=== PATIENT | female | born 1940 | race Caucasian/White ===

== ENCOUNTER → 2017-03-17 | Outpatient (CLI) | payer OTHER ==
[~2017-03-17] MED LIST: ACETAMINOPHEN-1 EAC1 PO; ACETAMINOPHEN325 M1 PO; ACETAMINOPHEN650 M5 PO; ADULT LOW DOSE81 MG PO; ALDACTONE25 MG PO; ASPIRIN81 M2 PO; BACTROBAN NASAL1 GM NS; BAYER CHEWABLE81 MG PO; BENADRYL25 MG PO; BYDUREON2 MG; BYDUREON2 MG INJECTION; BYETTA PEN 11 PENIN1 SUBQ; BYETTA PEN 11 PENINJ SUBQ; CARVEDILOL3.125 MG PO; CHLORHEXADINE120 ML TP; CLEOCIN HCL300 MG PO; COMBIVENT INH; COMBIVENT RESPIM4 GM INH; COMPOUND PAIN CREAM; COUMADIN 10MG T10 M1 PO; COUMADIN 5 MG TA5 M1 PO; COZAAR 50 MG TA50 M1 PO; COZAAR 50 MG TA50 M2 PO; DARVOCET-N 1001 EACH PO; DEMADEX20 MG PO; DOXYCYCLINE 10100 M1 PO; DOXYCYCLINE 10100 MG PO; DYAZIDE 37.5-21 EACH PO; FERREX-150 PLU150 MG PO; FISH OIL 1,0001 EAC5 PO; FISH OIL 1,2001 EAC4 PO; FLAGYL500 MG PO; FUROSEMIDE 80 M80 M1 PO; GAS-X125 MG PO; GLUCOPHAGE500 MG PO; GLUMETZA500 PO; IMDUR 30 MG TAB30 M1 PO; IMDUR 60 MG TAB60 M1 PO; JANUMET 50-5001 EACH PO; K-DUR 20 MEQ T20 MEQ PO; KLOR-CON 1010 MEQ PO; LASIX 40 MG TAB40 M1 PO; LASIX 80 MG TAB80 M1 PO; LEVAQUIN 500 M500 M2 PO; LISINOPRIL20 MG PO; LOPRESSOR 12.12.5 MG PO; LORTAB 5 MG/5001 TA1 PO; LOSARTAN POTASS50 MG PO; METFORMIN 500500 MG PO; METOPROLOL SUCC50 MG PO; MULTAQ400 MG PO; MULTIPLE VITAM1 EAC3 PO; NEXIUM40 MG PO; NITROGLYCERIN0.4 MG SL; PACERONE 200 M200 M1 PO; PERCOCET 5-3251 EACH PO; PLAVIX 75 MG TA75 M1 PO; POTASSIUM20 PO; PRADAXA150 MG PO; PRAVACHOL40 MG PO; PREDNISONE 20 M20 M1 PO; PREDNISONE 20 M20 MG PO; PREMPRO 0.625-1 EACH PO; PRILOSEC 20 MG20 MG PO; PROPAFENONE 22225 M1 PO; PROTONIX40 M1 PO; PROTONIX40 M2 PO; PROVENTIL HFA6.7 G1 INH; PROVERA2.5 MG PO; REGLAN 5 MG TAB5 M1 GT; REQUIP 1 MG TABL1 M1 PO; TOPROL XL25 MG PO; TOPROL XL50 MG PO; TUMS PO; TYLENOL W/CODEI1 TA2 PO; TYLENOL325 MG PO; ULTRAM 50MG TAB50 MG PO; VENOFER100 MG/51 IV; VITAMIN D31000 UNI2 PO
== END ==
LOC: ULTRA 08:14
DX: K80.20 Calculus of gallbladder without cholecystitis without obstruction (principal); R11.2 Nausea with vomiting, unspecified; R10.11 Right upper quadrant pain

== ENCOUNTER → 2017-05-05 | Outpatient (CLI) | payer OTHER | LOC: ULTRA 10:12 | DX: K81.9 Cholecystitis, unspecified (principal) ==

== ENCOUNTER 2017-05-13 10:13 | Inpatient (IN) | payer OTHER ==
[~2017-05-13] VITALS: Ht 165.1 cm; Wt 84.4 kg
--- NOTE | ~2017-05-13 | O ---
[address] [address] OPERATIVE REPORT Name: CHINO MEDEL Room #: 305-P ADM IN M.R.#: [id number] Admission: 08/05/17 Attend Phys: Aman Suarez MD, F Discharge: Date of : 44 Report #: [id number] THIS REPORT FOR: //name// CC: Ivan Suarez DATE OF SERVICE: 08/05/2017 SURGEON: Aman Suarez MD COMPUTER SYSTEMS AUDITOR: Juju Martinez NP PREOPERATIVE DIAGNOSES: 1. Symptomatic cholelithiasis, possible acute cholecystitis (status post percutaneous cholecystostomy placement). 2. Hypokalemia. 3. Renal failure. 4. Peripheral vascular disease. 5. Atrial fibrillation. 6. Hypertension. 7. Status post aortic valve replacement. POSTOPERATIVE DIAGNOSES: 1. Acute cholecystitis (status post percutaneous cholecystostomy). 2. Incarcerated umbilical hernia. 3. Renal failure. 4. Peripheral vascular disease. 5. Atrial fibrillation. 6. Hypertension. 7. Status post aortic valve replacement. PROCEDURES: 1. Robotic-assisted laparoscopic cholecystectomy with intraoperative cholangiogram. 2. Laparoscopic primary repair of incarcerated umbilical hernia (separate procedure). ANESTHESIA: General endotracheal anesthesia and local anesthetic. ESTIMATED BLOOD LOSS: 10 mL. SPECIMEN: Gallbladder. COMPLICATIONS: None appreciated. [address] [address] OPERATIVE REPORT Name: CHINO MEDEL Room #: 305-P [facility]M [facility] [id number] Admission: 08/05/17 Attend Phys: Aman Suarez MD, F Discharge: Date of : 42 Report #: [id number] INDICATIONS FOR PROCEDURE: This is a 77-year-old female patient who developed acute cholecystitis. She is status post cholecystostomy placement. The patient had been admitted to with chest pain and her workup revealed this to be noncardiac in nature. The patient had developed worsening acute cholecystitis and underwent cholecystostomy placement by Interventional Radiology. She was initially evaluated in late March with complaints of postprandial nausea, vomiting, abdominal pain, diarrhea and belching 3 months prior. She also had slight jaundice and a low-grade fever of nearly 100 degrees Fahrenheit. Abdominal ultrasound showed cholelithiasis with gallbladder wall thickening, a 6.5 mm, possibly secondary to incomplete distention of the gallbladder or acute on chronic cholecystitis with a negative sonographic Andino's sign. The patient was sent for cardiac clearance and during that time, she developed worsening, prompting her cholecystostomy placement. She has been cleared by Cardiology with a Lovenox bridge. The patient presents today for laparoscopic cholecystectomy with cholangiogram. OPERATIVE FINDINGS: The cholangiogram showed filling of the gallbladder as well as the biliary tree with contrast. No filling defects were seen. Contrast flowed into the duodenal sweep. Robotically, adhesions were present in the right upper quadrant of the abdomen. There were adhesions from the liver to the anterior abdominal wall as well as from omentum to the liver and to the gallbladder. The gallbladder itself was thickened and upon dissection, acute cholecystitis changes were present. The critical view consisting of cystic artery, cystic duct and lower edge of the gallbladder forming a window through which the liver was visible was seen prior to clipping off the cystic artery and cystic duct. Two clips remained on the cystic duct stump and one clip on the cystic artery stump after each was divided. During removal of the gallbladder from the patient's abdominal cavity, an incarcerated umbilical hernia defect was identified. After reducing the herniated content, this required a separate daynae-sw-ubjzk 0 PDS suture for closure. The gallbladder was opened on the backtable. Multiple moderate sized nonpigmented stones were found within the gallbladder with at least one stone lodged in the infundibulum of the gallbladder. Both acute and chronic inflammatory changes were present. The liver bed was oozing and this required placement of FloSeal as a hemostatic agent, especially since the patient is on chronic anticoagulation for her atrial fibrillation and valve replacement. No other significant intraabdominal pathology was identified and there was no evidence for iatrogenic injury. DESCRIPTION OF PROCEDURE IN DETAIL: After the risks, benefits, and expectations of the operation were discussed in detail with the patient, informed consent was obtained. The patient was identified in the preoperative holding area. She was given IV antibiotics as documented in the chart in line with SCIP metrics. The patient was then taken to the operating room and she was placed in the supine position. She was given IV sedation and she was [address] [address] OPERATIVE REPORT Name: MEDELCHINO COLLEEN Room #: 305-P [facility] IN .R.#: [id number] Admission: 08/05/17 Attend Phys: Aman Suarez MD, F Discharge: Date of : 42 Report #: [id number] intubated without incident. It should be noted that the patient was hypokalemic in the preoperative holding area and required potassium to bring her potassium level from 2.9-3.4. The patient was given IV sedation and she was intubated without incident. SCDs had been placed on the patient's bilateral lower extremities and pneumatic compression was initiated. Prior to prepping and draping the patient, a cholangiogram was performed through the indwelling cholecystostomy tube. 60 mL of contrast was injected under fluoroscopy with findings as noted above. The catheter was then removed from the patient's body. The patient was rotated 180 degrees with her head away from anesthesia to accommodate for the robot. The patient's abdomen was prepped and draped in the standard sterile fashion. A time-out had been performed prior to the cholangiogram. Local anesthetic was infiltrated into the skin and subcutaneous tissue in the left mid abdomen where a small transverse incision was made. A 5 mm Visiport was placed intraperitoneally and pneumoperitoneum was achieved with insufflation of carbon dioxide to 15 mmHg. A 30-degree angled laparoscope was then inserted. A left lower quadrant 8 mm ports x 2 were placed under direct visualization after local anesthetic was infiltrated into the skin and subcutaneous tissue and appropriately sized incisions were made. An additional 12 mm port was placed under direct visualization in the infraumbilical area using a similar technique. The 5 mm port was then upsized to an 8 mm port under direct visualization. The robot was then docked to the da Rodolfo ports. After doing so, the instruments were inserted into the abdominal cavity and the tips of the instruments were in view near the gallbladder. The patient had been positioned in the reverse Trendelenburg position, rotated to her left. I then broke scrub to perform the dissection on the robotic console. The dome of the gallbladder was retracted in a cephalad direction. The gallbladder peritoneum was then scored medially and laterally and dissection was carried out around the cystic artery and cystic duct to identify both structures as the only 2 structures entering the gallbladder. The critical view was seen. Hemoclips were placed on the cystic duct x 3 and on the cystic artery x 2. The duct and artery were divided sharply, leaving clips on each stump as described above. The gallbladder was then dissected out the liver bed without entrance of the gallbladder or liver bed using electrocautery. The gallbladder was then fully detached from the liver bed and placed in the right upper quadrant of the abdomen for later removal. The liver bed was made hemostatic with electrocautery. I then rescrubbed to retrieve the gallbladder. A 5 mm 30-degree angled laparoscope was inserted and the gallbladder was placed in the EndoCatch bag and brought out through the 12 mm port site. While doing so, a hernia was seen at [address] [address] OPERATIVE REPORT Name: CHINO MEDEL Room #: 305-P [facility] IN .R.#: [id number] Admission: 08/05/17 Attend Phys: Aman Suarez MD, F Discharge: Date of : 42 Report #: [id number] the umbilicus. The incarcerated tissue was dissected out of the defect. The defect was then closed with a ewxpzg-ku-kgecy 0 PDS suture under direct visualization with the Jason-Melony laparoscopic fascial closure device. An additional simple interrupted suture was placed with Jason-Melony laparoscopic fascial closure device for approximation of the port site fascia. The port was then replaced and the abdominal cavity was reentered. The liver bed was made hemostatic with both electrocautery and with the addition of FloSeal. After applying FloSeal, there was good hemostasis. No other significant intraabdominal pathology was identified. The fascial suture was tied under direct visualization to ensure no incorporation of intra-abdominal content with the closure. The abdominal cavity was then desufflated and the ports were removed. Interrupted subcuticular 4-0 Monocryl sutures and Dermabond were used to close the skin incisions. The patient tolerated the procedure well. She was awakened, extubated, and taken to recovery room in stable condition with no apparent intraoperative complications. <ELECTRONICALLY SIGNED> By: Aman Suarez MD, FACS 08/05/17 1957 1452 1604 Aman Suarez MD, FACS /nt
--- NOTE | ~2017-05-13 | S ---
[facility] [address] SURGICAL PATH RPT PROCEDURE Name: DANYELLE MEDEL Room #: 305-P ADM IN M.R.#: [id number] Admission: 08/05/17 Date of : 44 Discharge: Report #: [id number] Path Case #: [id number] PATHOLOGY REPORT COLLECTION DATE: 08/05/2017 RECEIVED DATE: 08/05/2017 SUBMITTING PHYS: Dr. Aman Suarez OTHER PHYS: Dr. Sacha Mae SPECIMEN(S) RECEIVED: A.Gallbladder * * * * * * * * * * * * FINAL DIAGNOSIS: "Gallbladder", cholecystectomy: - Marked acute cholecystitis. - Cholelithiasis. (CLW:jerica; 08/07/2017) PATHOLOGIST: Christina Cruz M.D. REPORT ELECTRONICALLY SIGNED BY: Christina Cruz M.D. DATE/TIME: 08/07/2017 14:24 * * * * * * * * * * * * GROSS PATHOLOGY: Received in formalin labeled "Danyelle Medel gallbladder," is a 7.3 x 5.6 x 2.7 cm, previously opened gallbladder with light perales, slightly wrinkled serosal surfaces. Opening the gallbladder reveals light perales to dark brown, grainy mucosa and an average wall thickness of 0.3 cm. Calculi are present, measuring 0.6-1.9 cm in maximum dimension, possessing a dark perales color, and feeling firm to the touch. No masses are noted grossly. Fusion Operator sections from the body and fundus are submitted along with the proximal margin in cassette A1. (TSD; 08/06/2017) CLINICAL HISTORY: Acute cholecystitis INITIAL CPT CODE(S): A; 66942 Professional [facility] by [facility] [address] , [place] [address] [facility] [address] [place] [address] SURGICAL PATH RPT PROCEDURE Name: DANYELLE MEDEL Room #: 305-P [facility] IN ..#: [id number] Admission: 08/05/17 Date of : 42 Discharge: Report #: [id number] Path Case #: [id number] Technical [facility] by [facility] at [address] [place] [address], [facility] [address] [address]. [facility] [address] [place] [address] PHONE: [phone] DIRECTOR: Bao Zamora M.D. * * * END OF REPORT * * *
[2017-06-02] MEDS ORDERED: POTASSIUM20 PO (10:06)
[2017-06-02] MEDS ORDERED: TOPROL XL25 MG PO (16:42)
[2017-06-02] MEDS ORDERED: NITROSTAT0.4 M1 SL (16:47)
[2017-06-02] MEDS ORDERED: CALCITRIOL0.25 MCG PO (16:49)
[2017-06-08] MEDS ORDERED: CIPRO500 MG PO (10:51)
[2017-06-08] MEDS ORDERED: COZAAR 50 MG TA50 M1 PO (11:02)
[2017-07-10] MEDS ORDERED: COZAAR 25 MG TA25 M1 PO (11:58)
[2017-07-10] MEDS ORDERED: VITAMIN D400 UNI2 PO (11:59)
[2017-08-01] MEDS ORDERED: ENOXAPARIN40 MG/0.1 SUBQ (08:43)
[2017-08-01] MEDS ORDERED: JANUVIA25 MG PO (08:47)
[2017-08-01] MEDS ORDERED: COMBIVENT INH (09:17)
[2017-08-01] MEDS ORDERED: COUMADIN7.5 MG PO (09:20)
[2017-08-05 07:08] LABS: HEMATOCRIT 28.5 % (37.0-47.0); HEMOGLOBIN 9.9 gm/dL (12.0-15.0); MCH 29.8 pg (26.0-34.0); MCHC 34.9 g/dL (28.0-37.0); MCV 85.3 fL (80.0-100.0); RBC 3.34 mil/uL (4.20-5.00); RDW 15.2 % (10.5-14.5); WBC 4.7 thou/uL (4.0-11.0)
[2017-08-05 07:18] LABS: CALCIUM 8.7 mg/dL (8.5-10.1); CREATININE 4.4 mg/dL (0.6-1.0)
[2017-08-05 07:24] LABS: ALBUMIN 3.5 g/dL (3.4-5.0); TOTAL BILIRUBIN 0.8 mg/dL (<0.1-1.0)
[2017-08-05 07:25] LABS: INR 1.5; POTASSIUM 2.9 mmol/L (3.5-5.1); PROTIME 15.6 Seconds (9.3-11.4)
[2017-08-05 16:30] VITALS: BP 142/55
[2017-08-05 17:00] VITALS: BP 124/53
[2017-08-05 20:00] VITALS: BP 143/57
[2017-08-06] VITALS: BP 112/45
[2017-08-06 04:00] VITALS: BP 89/45
[2017-08-06 06:33] LABS: HEMATOCRIT 24.9 % (37.0-47.0); HEMOGLOBIN 8.5 gm/dL (12.0-15.0); MCH 29.6 pg (26.0-34.0); MCHC 34.3 g/dL (28.0-37.0); MCV 86.5 fL (80.0-100.0); PLATELET COUNT 141 thou/uL (150-400); RBC 2.88 mil/uL (4.20-5.00); RDW 15.2 % (10.5-14.5)
[2017-08-06 06:35] LABS: MANUAL DIFF YES
[2017-08-06 06:48] LABS: POTASSIUM 3.5 mmol/L (3.5-5.1)
[2017-08-06 06:49] LABS: CREATININE 2.7 mg/dL (0.6-1.0)
[2017-08-06 07:35] VITALS: BP 96/43
[2017-08-06 08:52] LABS: ABSOLUTE NEUTROPHILS 4.3 thou/uL (1.4-8.2); ANISOCYTOSIS 1+; TOTAL CELL COUNT 100
[2017-08-06 11:55] VITALS: BP 119/53
[2017-08-06 19:07] VITALS: BP 120/62
[2017-08-07 04:51] VITALS: BP 112/56
[2017-08-07 05:53] LABS: HEMATOCRIT 24.2 % (37.0-47.0); HEMOGLOBIN 8.4 gm/dL (12.0-15.0); MCH 30.2 pg (26.0-34.0); MCHC 34.8 g/dL (28.0-37.0); MCV 86.6 fL (80.0-100.0); PLATELET COUNT 121 thou/uL (150-400); RBC 2.79 mil/uL (4.20-5.00); RDW 15.2 % (10.5-14.5); WBC 4.6 thou/uL (4.0-11.0)
[2017-08-07 05:55] LABS: MANUAL DIFF YES
[2017-08-07 06:03] LABS: CALCIUM 8.4 mg/dL (8.5-10.1); CREATININE 1.9 mg/dL (0.6-1.0); INR 1.8; MAGNESIUM 1.8 mg/dL (1.8-2.4); POTASSIUM 3.5 mmol/L (3.5-5.1); PROTIME 18.5 Seconds (9.3-11.4)
[2017-08-07 07:09] VITALS: BP 122/51
[2017-08-07 08:47] LABS: ABSOLUTE NEUTROPHILS 3.5 thou/uL (1.4-8.2); ANISOCYTOSIS 1+; ATYPICAL LYMPHS 1 %; TOTAL CELL COUNT 100
[2017-08-07] MEDS ORDERED: DEMADEX20 MG PO (10:09)
[2017-08-07] MEDS ORDERED: PEPCID20 MG PO (10:09)
[2017-08-07] MEDS ORDERED: COLACE 100 MG100 MG PO (10:09)
[2017-08-07 15:19] VITALS: BP 122/51
== END 2017-08-07 17:32 | disposition home or self-care (01) | DRG 417 ==
LOC: OR → EDSTATUS 06-11 08:14 → OR 06-11 10:34 → TBA 08-05 05:53 → 3N 08-05 05:53 → PRE 08-05 08:17 → 3N 08-05 16:55 → ENTRNSPT 08-07 16:07 → 3N 08-07 17:32
PROVIDERS: Anesthesiology; Nurse Practitioner; Surgery
PROC: 0FT44ZZ Resection of Gallbladder, Percutaneous Endoscopic Approach (ICD-10-PCS; principal; 2017-08-05)
PROC: 0WQF4ZZ Repair Abdominal Wall, Percutaneous Endoscopic Approach (ICD-10-PCS; 2017-08-05)
PROC: 8E0W4CZ Robotic Assisted Procedure of Trunk Region, Percutaneous Endoscopic Approach (ICD-10-PCS; 2017-08-05)
PROC: BF131ZZ Fluoroscopy of Gallbladder and Bile Ducts using Low Osmolar Contrast (ICD-10-PCS; 2017-08-05)
DX: K81.0 Acute cholecystitis (principal); N17.0 Acute kidney failure with tubular necrosis; K42.0 Umbilical hernia with obstruction, without gangrene; I25.10 Atherosclerotic heart disease of native coronary artery without angina pectoris; G47.33 Obstructive sleep apnea (adult) (pediatric); I48.91 Unspecified atrial fibrillation; E78.00 Pure hypercholesterolemia, unspecified; M10.9 Gout, unspecified; G43.909 Migraine, unspecified, not intractable, without status migrainosus; J45.909 Unspecified asthma, uncomplicated; E11.22 Type 2 diabetes mellitus with diabetic chronic kidney disease; I12.9 Hypertensive chronic kidney disease with stage 1 through stage 4 chronic kidney disease, or unspecified chronic kidney disease; N18.9 Chronic kidney disease, unspecified; Z96.641 Presence of right artificial hip joint; E11.51 Type 2 diabetes mellitus with diabetic peripheral angiopathy without gangrene; E87.6 Hypokalemia; Z96.653 Presence of artificial knee joint, bilateral; Z90.710 Acquired absence of both cervix and uterus; Z88.0 Allergy status to penicillin; Z88.2 Allergy status to sulfonamides; Z88.8 Allergy status to other drugs, medicaments and biological substances; Z86.73 Personal history of transient ischemic attack (TIA), and cerebral infarction without residual deficits; Z95.0 Presence of cardiac pacemaker; Z95.2 Presence of prosthetic heart valve; Z98.42 Cataract extraction status, left eye; Z98.41 Cataract extraction status, right eye; Z95.5 Presence of coronary angioplasty implant and graft; Z85.51 Personal history of malignant neoplasm of bladder; Z87.891 Personal history of nicotine dependence
CPT/HCPCS: 10096; 49000; 50010; 50101; 50249; 50411; 50455; 50555; 50558; 50900; 51751; 51975; 52265; 54022; 54118; 56525; 56526; 56632; 56641; 57006; 62110; 62900; 70005

== ENCOUNTER → 2017-06-16 | Outpatient (CLI) | payer OTHER ==
[~2017-06-16] VITALS: Ht 160 cm; Wt 95.3 kg
[~2017-06-16] MED LIST changes: +CALCITRIOL0.25 MCG PO; +CIPRO500 MG PO; +NITROSTAT0.4 M1 SL
[2017-06-16 13:44] VITALS: BP 132/59
== END ==
LOC: SPEC 12:56
DX: Z43.4 Encounter for attention to other artificial openings of digestive tract (principal); I25.10 Atherosclerotic heart disease of native coronary artery without angina pectoris; I11.0 Hypertensive heart disease with heart failure; I50.9 Heart failure, unspecified; E11.9 Type 2 diabetes mellitus without complications; E78.00 Pure hypercholesterolemia, unspecified; M10.9 Gout, unspecified; K21.9 Gastro-esophageal reflux disease without esophagitis; E78.5 Hyperlipidemia, unspecified; E66.09 Other obesity due to excess calories; G43.909 Migraine, unspecified, not intractable, without status migrainosus; G47.33 Obstructive sleep apnea (adult) (pediatric); I48.91 Unspecified atrial fibrillation; D64.9 Anemia, unspecified; Z87.891 Personal history of nicotine dependence; Z98.41 Cataract extraction status, right eye; Z98.42 Cataract extraction status, left eye; Z96.1 Presence of intraocular lens; Z96.641 Presence of right artificial hip joint; Z96.653 Presence of artificial knee joint, bilateral; Z95.2 Presence of prosthetic heart valve; Z95.1 Presence of aortocoronary bypass graft; Z86.73 Personal history of transient ischemic attack (TIA), and cerebral infarction without residual deficits; Z98.890 Other specified postprocedural states; Z79.899 Other long term (current) drug therapy; Z88.0 Allergy status to penicillin; Z88.2 Allergy status to sulfonamides; Z88.8 Allergy status to other drugs, medicaments and biological substances

== ENCOUNTER → 2017-06-23 | Outpatient (CLI) | payer OTHER ==
[2017-06-23 13:15] LABS: CREATININE 2.5 mg/dL (0.6-1.0)
== END | disposition home or self-care (01) ==
LOC: CAT 12:37
PROVIDERS: Surgery
DX: T85.9XXA Unspecified complication of internal prosthetic device, implant and graft, initial encounter (principal)

== ENCOUNTER → 2017-07-30 | Outpatient (CLI) | payer OTHER ==
[~2017-07-30] MED LIST changes: +COUMADIN7.5 MG PO; +COZAAR 25 MG TA25 M1 PO; +ENOXAPARIN40 MG/0.1 SUBQ; +JANUVIA25 MG PO; +VITAMIN D400 UNI2 PO
--- NOTE | ~2017-07-30 | EKG ---
[address] [place] [address] ELECTROCARDIOGRAM REPORT Name: CHINO MEDEL [id number] Admission: 07/30/17 Attend Phys: Aman Suarez MD, F Discharge: Date of : 42 Report #: [id number] THIS REPORT FOR: //name// [facility] Test Date: 2017-07-30 Test Time: 16:07:49 Pat Name: CHINO MEDEL Department: Room: Gender: F Panel Raiser Operator: CAROLANN : 1940 Requested By: Aman Suarez Order Number: [id number] MD: Felix Huntley Measurements Intervals [place] Rate: 74 P: 45 MD: 124 QRS: 52 QRSD: 120 T: 59 QT: 416 QTc: 462 Interpretive Statements Sinus rhythm Nonspecific intraventricular conduction delay Borderline T abnormalities, anterior leads Compared to ECG 07/10/2017 11:34:51 No significant change was found Electronically Signed On 08-01-2017 8:24:37 CDT by Felix Huntley [email or web address] <ELECTRONICALLY SIGNED> By: Felix Huntley MD, [facility] 08/01/17 0824 06 06 Felix Huntley MD, [facility] /EPI
== END ==
LOC: RAD 15:12
DX: Z01.818 Encounter for other preprocedural examination (principal); K81.9 Cholecystitis, unspecified

== ENCOUNTER 2017-08-08 23:24 | Inpatient (IN) | payer OTHER ==
[~2017-08-08] VITALS: Ht 165.1 cm; Wt 97.1 kg
--- NOTE | ~2017-08-08 | HC ---
[facility] [place] [address] CONSULTATION Name: CHINO MEDEL Room #: 215-P ADM IN M.R.#: [id number] Admission: 08/09/17 Attend Phys: Sacha Smith DO Discharge: Date of : 42 Report #: [id number] THIS REPORT FOR: //name// CC: Sacha Hung DATE OF SERVICE: 08/09/2017 REQUESTING PHYSICIAN: Dr. Lan Truong. PRIMARY YARD ENGINEER: Dr. Ivan Wilson. REASON FOR CONSULTATION: Congestive heart failure, shortness of breath. HISTORY OF PRESENT ILLNESS: The patient is a 77-year-old woman who underwent a recent abdominal surgery at this institution. Since her discharge, she had been doing fairly well but then she began to have swelling and acute shortness of breath and presented to the Emergency Department. Her ECG did not show any acute ST segment changes. She was given diuretics in the Emergency Room and her shortness of breath has improved. Initially, she did present hypertensive with systolic pressures in the 170s but at this point in time, her blood pressure is normalized in the 140s. Clinically, she denies chest pain or palpitations. She denies orthopnea or PND, but had been dyspneic with exertion. PAST MEDICAL HISTORY: 1. She has an extensive cardiovascular history with a history of single-vessel bypass surgery, history of aortic valve replacement in 2009, history of ____ LV systolic function, history of ____, permanent pacemaker in 2011, Biotronik. 2. Remote TIA. 3. Atrial fibrillation. 4. Migraines. 5. Gout. 6. MRSA. 7. Chronic kidney disease. HOME MEDICATIONS: Include the following: Torsemide 20 mg daily, famotidine, docusate, warfarin 5 mg daily, baby aspirin, Aldactone 25 mg daily, Toprol-XL 25 mg daily, potassium chloride 20 mEq daily, losartan 25 mg daily, albuterol and Atrovent and pravastatin 40 mg daily. SOCIAL HISTORY: There is no tobacco or ethanol history. FAMILY HISTORY: Noncontributory. [facility] [address] [place] [address] CONSULTATION Name: CHINO MEDEL Room #: 215-P [facility] IN M.R.#: [id number] Admission: 08/09/17 Attend Phys: Sacha Smith DO Discharge: Date of : 42 Report #: [id number] REVIEW OF SYSTEMS: GENERAL: No fevers or chills. GASTROINTESTINAL: No abdominal pain, nausea or vomiting. GENITOURINARY: No dysuria or hematuria. MUSCULOSKELETAL: Denies any falls. CARDIOVASCULAR: Positive dyspnea with exertion. No chest pain, no orthopnea, no PND. HEMATOLOGIC: No anemia or bleeding disorders. RENAL: No history of kidney failure. PHYSICAL EXAMINATION: VITAL SIGNS: Blood pressure is 127/56, pulse is 79 in sinus rhythm and temperature is 37.1. GENERAL: This is a pleasant elderly female. She is alert, oriented, no apparent distress. NECK: Supple. No jugular venous distention. CARDIOVASCULAR: Regular. I could not hear a murmur or rub. LUNGS: Clear to auscultation. ABDOMEN: Nontender. She is mildly distended. There is no rebound or guarding. EXTREMITIES: There is a 1 to 2+ edema. NEUROLOGIC: No focal deficits. LABORATORY DATA: Her hemoglobin is 9.2, white blood count is 4.7, platelet counts 203,000. INR is 2.0. Sodium is 138, potassium is 3.6, chloride is 104, CO2 is 26, BUN is 12, creatinine is 1.4. Chest x-ray on 08/08 demonstrates no acute process. IMPRESSION: 1. Acute diastolic congestive heart failure. I suspect this is related to volume and colloid received during her surgery. I would continue with diuretics and she can resume her torsemide at home at her current dose. 2. Coronary artery disease, status post bypass surgery and percutaneous coronary intervention. She has ruled out for an acute myocardial infarction. I was reviewing her records and she had a cardiac catheterization in 2013, which showed a patent stent in the first obtuse marginal vessel and a patent vein graft to the posterior descending artery and minimal disease elsewhere. 3. Status post aortic valve replacement. Would continue with warfarin. 4. Hypertension. This is stable on current therapy. 5. Status post robot assisted cholecystectomy. She seems to have recovered from this. <ELECTRONICALLY SIGNED> By: Jun Ashraf MD, FACC 08/11/17 0941 1409 2317 Jun Ashraf MD, FACC /nt
--- NOTE | ~2017-08-08 | EKG ---
[address] [address] ELECTROCARDIOGRAM REPORT Name: CHINO MEDEL Room #: 215-P ADM IN M.R.#: [id number] Admission: 08/09/17 Attend Phys: Lan Hung Discharge: Date of : 44 Report #: [id number] THIS REPORT FOR: //name// [facility] ED Test Date: 2017-08-08 Test Time: 23:32:52 Pat Name: CHINO MEDEL Department: Room: [facility] Gender: F Machine Sign Writer: SKYLER : 1940 Requested By: Kdai Bright Order Number: [id number] MD: Yosvany Park Measurements Intervals [place] Rate: 73 P: 69 ND: 162 QRS: 30 QRSD: 117 T: 44 QT: 407 QTc: 449 Interpretive Statements Sinus rhythm Nonspecific intraventricular conduction delay Compared to ECG 07/30/2017 16:07:49 T-wave abnormality no longer present Electronically Signed On 08-09-2017 12:44:26 CDT by Yosvany Park [email or web address] <ELECTRONICALLY SIGNED> By: Yosvany Park MD 08/09/17 1244 2332 2332 MD BRUNO Colón
[~2017-08-08 23:24] MED LIST changes: +COLACE 100 MG100 MG PO; +PEPCID20 MG PO
[2017-08-08 23:30] VITALS: BP 176/52
[2017-08-09] VITALS (8 sets, daily range): BP systolic 121–184; BP diastolic 52–103
[2017-08-09 00:05] LABS: HEMATOCRIT 26.5 % (37.0-47.0); HEMOGLOBIN 9.2 gm/dL (12.0-15.0); MCHC 34.8 g/dL (28.0-37.0); MCV 86.3 fL (80.0-100.0); RBC 3.07 mil/uL (4.20-5.00); RDW 15.5 % (10.5-14.5); WBC 4.7 thou/uL (4.0-11.0)
[2017-08-09 00:06] LABS: PLATELET COUNT 203 thou/uL (150-400)
[2017-08-09 00:07] LABS: MANUAL DIFF YES
[2017-08-09 00:13] LABS: CALCIUM 9.3 mg/dL (8.5-10.1); CREATININE 1.4 mg/dL (0.6-1.0); POTASSIUM 3.6 mmol/L (3.5-5.1)
[2017-08-09 00:58] LABS: ABSOLUTE NEUTROPHILS 3.6 thou/uL (1.4-8.2); ANISOCYTOSIS SLIGHT; HYPOCHROMASIA SLIGHT; LARGE PLATELETS RARE; TOTAL CELL COUNT 100
[2017-08-09 01:55] LABS: APTT 33.5 Seconds (24.5-32.8); PROTIME 19.5 Seconds (9.3-11.4)
[2017-08-10 03:51] LABS: HEMATOCRIT 25.2 % (37.0-47.0); HEMOGLOBIN 8.8 gm/dL (12.0-15.0); MCH 29.7 pg (26.0-34.0); MCHC 34.8 g/dL (28.0-37.0); MCV 85.4 fL (80.0-100.0); PLATELET COUNT 230 thou/uL (150-400); RBC 2.95 mil/uL (4.20-5.00); RDW 15.5 % (10.5-14.5); WBC 4.2 thou/uL (4.0-11.0)
[2017-08-10 04:05] LABS: CALCIUM 8.8 mg/dL (8.5-10.1); CREATININE 1.5 mg/dL (0.6-1.0); POTASSIUM 3.1 mmol/L (3.5-5.1)
[2017-08-10 04:30] VITALS: BP 139/51
[2017-08-10 06:00] LABS: MANUAL DIFF YES
[2017-08-10 08:45] LABS: ABSOLUTE NEUTROPHILS 3.2 thou/uL (1.4-8.2); ANISOCYTOSIS 1+; POLYCHROMASIA OCCASIONAL; TOTAL CELL COUNT 100
[2017-08-10 10:31] VITALS: BP 146/75
[2017-08-10 16:42] VITALS: BP 142/68
[2017-08-10 20:26] VITALS: BP 144/56
[2017-08-11 03:15] LABS: HEMATOCRIT 28.1 % (37.0-47.0); HEMOGLOBIN 9.4 gm/dL (12.0-15.0); MCHC 33.4 g/dL (28.0-37.0); PLATELET COUNT 264 thou/uL (150-400); RBC 3.23 mil/uL (4.20-5.00); RDW 15.2 % (10.5-14.5)
[2017-08-11 03:28] LABS: CALCIUM 8.7 mg/dL (8.5-10.1); CREATININE 1.5 mg/dL (0.6-1.0); INR 1.4; POTASSIUM 3.2 mmol/L (3.5-5.1)
[2017-08-11 03:29] LABS: MANUAL DIFF YES
[2017-08-11 04:08] VITALS: BP 149/57
[2017-08-11 05:39] LABS: ABSOLUTE NEUTROPHILS 3.5 thou/uL (1.4-8.2); LARGE PLATELETS FEW; TOTAL CELL COUNT 100
[2017-08-11 07:37] VITALS: BP 131/54
[2017-08-11 11:37] VITALS: BP 131/54
[2017-08-11 11:45] VITALS: BP 131/54
== END 2017-08-11 14:25 | disposition home health service (06) | DRG 291 ==
LOC: ER 23:24 → EROBS 08-09 01:10 → 2N 08-09 01:10 → ENTRNSPT 08-11 12:04 → EDTRNSPTSTS 08-11 12:12 → 2N 08-11 14:25
PROVIDERS: Emergency Medicine; Family Medicine; Internal Medicine Cardiovascular Disease
DX: I13.0 Hypertensive heart and chronic kidney disease with heart failure and stage 1 through stage 4 chronic kidney disease, or unspecified chronic kidney disease (principal); I50.31 Acute diastolic (congestive) heart failure; I25.10 Atherosclerotic heart disease of native coronary artery without angina pectoris; G47.33 Obstructive sleep apnea (adult) (pediatric); I48.91 Unspecified atrial fibrillation; M10.9 Gout, unspecified; N18.9 Chronic kidney disease, unspecified; G43.909 Migraine, unspecified, not intractable, without status migrainosus; Z96.1 Presence of intraocular lens; J45.909 Unspecified asthma, uncomplicated; E78.00 Pure hypercholesterolemia, unspecified; Z96.641 Presence of right artificial hip joint; Z96.653 Presence of artificial knee joint, bilateral; E11.22 Type 2 diabetes mellitus with diabetic chronic kidney disease; Z86.73 Personal history of transient ischemic attack (TIA), and cerebral infarction without residual deficits; Z95.0 Presence of cardiac pacemaker; Z95.1 Presence of aortocoronary bypass graft; Z95.2 Presence of prosthetic heart valve; Z98.42 Cataract extraction status, left eye; Z98.41 Cataract extraction status, right eye; Z95.5 Presence of coronary angioplasty implant and graft; Z85.51 Personal history of malignant neoplasm of bladder; Z79.899 Other long term (current) drug therapy; Z88.6 Allergy status to analgesic agent; Z88.0 Allergy status to penicillin; Z88.5 Allergy status to narcotic agent; Z88.8 Allergy status to other drugs, medicaments and biological substances; Z88.2 Allergy status to sulfonamides; Z87.891 Personal history of nicotine dependence; Z90.49 Acquired absence of other specified parts of digestive tract; Z90.710 Acquired absence of both cervix and uterus
CPT/HCPCS: 10081

== ENCOUNTER → 2018-05-14 | Outpatient (CLI) | payer OTHER | LOC: ULTRA 06:01 | DX: N18.4 Chronic kidney disease, stage 4 (severe) (principal); N28.1 Cyst of kidney, acquired; R35.0 Frequency of micturition ==

== ENCOUNTER → 2018-05-21 | Outpatient (CLI) | payer OTHER | LOC: ULTRA 15:10 | DX: N28.1 Cyst of kidney, acquired (principal); R63.0 Anorexia; Z90.49 Acquired absence of other specified parts of digestive tract ==

== ENCOUNTER → 2019-01-11 | Outpatient (CLI) | payer OTHER ==
[~2019-01-11] MED LIST changes: +FLECAINIDE ACET50 M1 PO
[2019-01-11 09:45] VITALS: BP 106/61
[2019-01-11 10:55] VITALS: BP 115/55
--- NOTE | 2019-01-11 12:26 | NUR ---
IN FOR 1ST OF 5 VENOFER INFUSIONS. STATED FEELING VERY TIRED AND NEEDS A PICK ME UP. ADMISSION HISTORY AND ASSESSMENT COMPLETED. RECONCILED MEDICATIONS. NO NEW ALLERGIES. IV STARTED IN RAC AND INFUSED VENOFER OVER 30 MIN. TOLERATED WELL WITHOUT INCIDENT. POST VITAL SIGNS GOOD. REMOVED IV AND APPLIED COBAN PATIENT IS ON WARFARIN AND BLEEDS EASILY. TO RETURN FRIDAY FOR 2ND INFUSION. DISMISSED IN STABLE CONDITION.
== END ==
LOC: OPONC 00:26
DX: N18.9 Chronic kidney disease, unspecified (principal); D63.1 Anemia in chronic kidney disease; D50.9 Iron deficiency anemia, unspecified
CPT/HCPCS: 95000

== ENCOUNTER → 2019-01-13 | Outpatient (CLI) | payer OTHER ==
[2019-01-13 10:00] VITALS: BP 128/63
[2019-01-13 11:00] VITALS: BP 138/54
[2019-01-13 11:15] VITALS: BP 147/66
--- NOTE | 2019-01-13 11:21 | NUR ---
HERE FOR 2ND OF 5 IV IRON INFUSIONS FOR IRON DEFICIENCY ANEMIA. REPORTS TOLERATING FRIDAY'S DOSE WELL AND TODAY'S INFUSION COMPLETED WITHOUT INCIDENT, INFUSED OVER 30 MINUTES. VSS POST. SALINE LOCK LEFT IN PLACE LEFT FOREARM PER PT'S REQUEST. SCHEDULED TO RETURN AGAIN ON FRIDAY. DISMISSED IN STABLE CONDITION.
== END ==
LOC: OPONC 00:13
DX: D50.9 Iron deficiency anemia, unspecified (principal); N18.9 Chronic kidney disease, unspecified
CPT/HCPCS: 95000

== ENCOUNTER → 2019-01-15 | Outpatient (CLI) | payer OTHER ==
[2019-01-15 08:10] VITALS: BP 153/69
[2019-01-15 08:50] VITALS: BP 146/63
--- NOTE | 2019-01-15 09:00 | NUR ---
IN FOR 3RD OF 5 DOSES VENOFER FOR IRON DEFICIENCY ANEMIA. REPORTS TOLERATING THEM ALL WELL, NO S/S ADVERSE REACTIONS. SALINE LOCK LEFT IN PLACE FROM FRI FLUSHED EASILY THIS MORNING BUT BECAME TENDER MIDWAY THROUGH TODAY'S INFUSION SO DC'D AND NEW LINE PLACED RAC FOR REMAINDER OF INFUSION. PT TOLERATED WELL. DISMISSED IN STABLE CONDITION, VSS. SCHEDULED TO RETURN AGAIN ON FRIDAY.
== END ==
LOC: OPONC 02:46
DX: D50.9 Iron deficiency anemia, unspecified (principal); N18.9 Chronic kidney disease, unspecified
CPT/HCPCS: 95000

== ENCOUNTER → 2019-01-18 | Outpatient (CLI) | payer OTHER ==
[2019-01-18 07:50] VITALS: BP 129/62
[2019-01-18 09:15] VITALS: BP 143/68
--- NOTE | 2019-01-18 14:01 | NUR ---
IN FOR # 4 OF 5 VENOFER INFUSIONS. STATED SHE THINKS SHE IS FEELING BETTER BECAUSE SHE DOESN'T WANT TO SLEEP ALL THE TIME. DENIED PAIN. TOLERATED INFUSION WELL. POST VITAL SIGNS GOOD. REMOVED IV AND DISMISSED IN STABLE CONDITION.
== END ==
LOC: OPONC 07:52
DX: D50.9 Iron deficiency anemia, unspecified (principal); N18.9 Chronic kidney disease, unspecified
CPT/HCPCS: 95000

== ENCOUNTER → 2019-01-22 | Outpatient (CLI) | payer OTHER ==
[2019-01-22 09:07] VITALS: BP 141/65
[2019-01-22 09:55] VITALS: BP 138/61
--- NOTE | 2019-01-22 10:45 | NUR ---
PT IN FOR HER LAST VENOFER INFUSION. REPORTS GAINING SOME ENERGY AND STRENGTH. STATES SHE HAS TOLERATED ALL WITHOUT INCIDENT, NO S/S ADVERSE EFFECTS INCLUDING TODAY. VSS POST. STAYED FOR A BIT POST INFUSION TO AWAIT A LUNCH DATE. DISMISSED IN STABLE CONDITION.
== END ==
LOC: OPONC 01-20 08:13
DX: I13.0 Hypertensive heart and chronic kidney disease with heart failure and stage 1 through stage 4 chronic kidney disease, or unspecified chronic kidney disease (principal); E11.22 Type 2 diabetes mellitus with diabetic chronic kidney disease; N18.4 Chronic kidney disease, stage 4 (severe); D63.1 Anemia in chronic kidney disease; I25.10 Atherosclerotic heart disease of native coronary artery without angina pectoris; I48.0 Paroxysmal atrial fibrillation; E11.51 Type 2 diabetes mellitus with diabetic peripheral angiopathy without gangrene; Z85.51 Personal history of malignant neoplasm of bladder
CPT/HCPCS: 95000

== ENCOUNTER → 2020-06-19 | Outpatient (CLI) | payer OTHER | LOC: ULTRA 15:08 | PROVIDERS: ATTEND Nurse Practitioner | DX: R22.42 Localized swelling, mass and lump, left lower limb (principal) ==

== ENCOUNTER → 2020-07-11 | Outpatient (CLI) | payer OTHER | LOC: LAB 09:08 | PROVIDERS: ATTEND Family Medicine | DX: Z20.828 Contact with and (suspected) exposure to other viral communicable diseases (principal); R05 Cough ==

== ENCOUNTER → 2020-07-26 | Outpatient (CLI) | payer OTHER | LOC: RAD 07:59 | PROVIDERS: ATTEND Internal Medicine | DX: I50.32 Chronic diastolic (congestive) heart failure (principal) ==

== ENCOUNTER → 2020-10-31 | Outpatient (CLI) | payer OTHER | LOC: SJCVCIMAG 07:53 | PROVIDERS: ATTEND Nuclear Medicine Nuclear Cardiology | DX: I65.23 Occlusion and stenosis of bilateral carotid arteries (principal); E11.51 Type 2 diabetes mellitus with diabetic peripheral angiopathy without gangrene; I77.9 Disorder of arteries and arterioles, unspecified; I25.10 Atherosclerotic heart disease of native coronary artery without angina pectoris; I73.9 Peripheral vascular disease, unspecified; M79.604 Pain in right leg; M79.605 Pain in left leg; I48.0 Paroxysmal atrial fibrillation; E11.22 Type 2 diabetes mellitus with diabetic chronic kidney disease; I12.9 Hypertensive chronic kidney disease with stage 1 through stage 4 chronic kidney disease, or unspecified chronic kidney disease; N18.9 Chronic kidney disease, unspecified; E78.00 Pure hypercholesterolemia, unspecified; Z95.1 Presence of aortocoronary bypass graft; Z95.2 Presence of prosthetic heart valve; Z95.828 Presence of other vascular implants and grafts; Z79.899 Other long term (current) drug therapy; Z87.891 Personal history of nicotine dependence ==

== ENCOUNTER → 2021-06-27 | Outpatient (CLI) | payer OTHER ==
[~2021-06-27] MED LIST changes: -COUMADIN7.5 MG PO; +WARFARIN SODIU7.5 MG PO; +WARFARIN SODIUM5 MG PO
== END ==
LOC: HYPER 08:51
PROVIDERS: ATTEND Emergency Medicine Emergency Medical Services
DX: S31.819A Unspecified open wound of right buttock, initial encounter (principal); L02.31 Cutaneous abscess of buttock; E11.51 Type 2 diabetes mellitus with diabetic peripheral angiopathy without gangrene; E07.89 Other specified disorders of thyroid; E66.9 Obesity, unspecified; E78.00 Pure hypercholesterolemia, unspecified; G47.33 Obstructive sleep apnea (adult) (pediatric); I48.91 Unspecified atrial fibrillation; I25.10 Atherosclerotic heart disease of native coronary artery without angina pectoris; I11.0 Hypertensive heart disease with heart failure; I50.32 Chronic diastolic (congestive) heart failure; J45.909 Unspecified asthma, uncomplicated; Z86.73 Personal history of transient ischemic attack (TIA), and cerebral infarction without residual deficits; Z79.01 Long term (current) use of anticoagulants; Z79.82 Long term (current) use of aspirin; Z68.32 Body mass index [BMI] 32.0-32.9, adult; Z87.891 Personal history of nicotine dependence; Z95.4 Presence of other heart-valve replacement; Z95.0 Presence of cardiac pacemaker; Z90.49 Acquired absence of other specified parts of digestive tract; Z95.1 Presence of aortocoronary bypass graft; Z95.5 Presence of coronary angioplasty implant and graft; Z96.641 Presence of right artificial hip joint; Z96.653 Presence of artificial knee joint, bilateral; W19.XXXA Unspecified fall, initial encounter; Y93.89 Activity, other specified; Y92.89 Other specified places as the place of occurrence of the external cause; Y99.8 Other external cause status

== ENCOUNTER → 2021-10-30 | Outpatient (CLI) | payer OTHER | LOC: SJCVCIMAG 10-19 08:30 | PROVIDERS: ATTEND Nuclear Medicine Nuclear Cardiology | DX: I65.23 Occlusion and stenosis of bilateral carotid arteries (principal); I73.9 Peripheral vascular disease, unspecified; I77.9 Disorder of arteries and arterioles, unspecified; I25.10 Atherosclerotic heart disease of native coronary artery without angina pectoris; I48.0 Paroxysmal atrial fibrillation; E78.00 Pure hypercholesterolemia, unspecified; E11.22 Type 2 diabetes mellitus with diabetic chronic kidney disease; I13.0 Hypertensive heart and chronic kidney disease with heart failure and stage 1 through stage 4 chronic kidney disease, or unspecified chronic kidney disease; N18.9 Chronic kidney disease, unspecified; I50.32 Chronic diastolic (congestive) heart failure; G47.33 Obstructive sleep apnea (adult) (pediatric); J45.909 Unspecified asthma, uncomplicated; M79.604 Pain in right leg; M79.605 Pain in left leg; Z86.73 Personal history of transient ischemic attack (TIA), and cerebral infarction without residual deficits; Z88.0 Allergy status to penicillin; Z88.5 Allergy status to narcotic agent; Z88.8 Allergy status to other drugs, medicaments and biological substances; Z95.1 Presence of aortocoronary bypass graft; Z95.2 Presence of prosthetic heart valve; Z88.2 Allergy status to sulfonamides; Z79.01 Long term (current) use of anticoagulants; Z79.899 Other long term (current) drug therapy; Z87.891 Personal history of nicotine dependence ==